=== PATIENT | female | born 1960 | race Caucasian/White ===

== ENCOUNTER 2024-07-01 12:54 | Emergency (ER) | payer OTHER, SELFPAY ==
[2024-07-01 13:12] VITALS: BP 153/78; PULSE 68; RESP 16; TEMP 36.6; O2SAT 100
--- NOTE | 2024-07-01 13:34 | ED.GENADULT ---
HPI - General Adult General Chief complaint: Upper Respiratory Infection Stated complaint: Cough Time Seen by Provider: 07/01/24 13:34 Source: patient Mode of arrival: ambulatory Limitations: no limitations History of Present Illness HPI narrative: 64-year-old female patient presents to the [facility] with complaints of a cough for the past week. Patient states the cough is worse when she tries to go to bed at night. Patient denies any fevers body aches or chills. Patient states she has had a little congestion. And a sore throat. Patient states she has tried some [id number] Tylenol Cough syrup and Mucinex. Related Data Home Medications ?Medication ?Instructions ?Recorded ?Confirmed ?Last Taken ?Type omeprazole 20 mg tablet,delayed 20 mg PO DAILY 09/14/22 06/06/24 Unknown History release Allergies Allergy/AdvReac Type Severity Reaction Status Date / Time amoxicillin (From Amoxil) Allergy Intermediate Swelling Verified 07/01/24 13:14 of Lip/Tongue/Throat Penicillins Allergy Intermediate Swelling Verified 07/01/24 13:14 of Lip/Tongue/Throat azithromycin (From Zithromax Allergy Swelling Verified 07/01/24 13:14 Z-Vitor) of Lip/Tongue/Throat Cephalosporins Allergy Unknown Verified 07/01/24 13:14 esomeprazole AdvReac Severe swollen, Verified 07/01/24 13:14 numb tongue tetanus and diphtheria AdvReac Intermediate swelling Verified 07/01/24 13:14 toxoids and fever to shot site FABIANA Inhibitors AdvReac Cough Verified 07/01/24 13:14 hydrochlorothiazide AdvReac Other Verified 07/01/24 13:14 semaglutide (From Rybelsus) AdvReac Gastrointestinal Verified 07/01/24 13:14 Upset Review of Systems Review of Systems: CONSTITUTIONAL: Denies fever, chills, or sweats. EYES: Denies visual changes, redness, or discharge. ENT: positive rhinorrhea, denies congestion, Positive sore throat, denies otalgia. CARDIOVASCULAR: Denies chest pain, palpitations, or edema. RESPIRATORY: positive cough denies dyspnea. GASTROINTESTINAL: Denies abdominal pain, nausea, vomiting, or diarrhea. GENITOURINARY: Denies dysuria or hematuria. SKIN: Denies rash or itching. MUSCULOSKELETAL: Denies back pain, joint pain, or myalgia. NEUROLOGIC: Denies headache, numbness, or weakness. PSYCHIATRIC: Denies anxiety or depression. [facility] Past Medical History Medical History Dysfunction of right eustachian tube delivery delivered FH: cholecystectomy Vitamin D deficiency B12 deficiency GERD (gastroesophageal reflux disease) Depression Hypercholesteremia HTN (hypertension) Diabetes Surgical History Surgical History History of tonsillectomy Family History Family History Father Hypertension Heart disease Hx of CABG Diabetes mellitus Mother CAD (coronary artery disease) Diabetes mellitus Thyroid disease Sibling Breast cancer Social History Social History Social History: 06/02/24 very confident with medical forms Smoking status: Never smoker Alcohol intake: current Alcohol use details: 4 times a year Substance use: never Do You Feel Safe in your Home?: Yes Lack of Transportation: No Lack of Food: Never True Current Housing: I Have Housing Concerned About Future Housing: No Difficulty Paying Gas/Electric Bills: No Difficulty Paying for Meds: No Currently Unemployed: No Education: Associate Degree Difficulty w/ Childcare or Family Care: No Living arrangements: with family Occupation/Education: occupation Gender identity (if verbalized by the patient): Female Comments At the time of my signature I agree with nursing past medical history, surgical, social, and family history. There is no relevant family history pertinent to the presenting complaint. Exam Narrative: GENERAL: Well-appearing, well-nourished, and in no acute distress. HEAD: Normocephalic, atraumatic. EYES: PERRLA and EOMI. ENT: Nares clear, no rhinorrhea or epistaxis. Mucous membranes moist. posterior pharynx with no erythema, tonsillar enlargement, exudates or lesions present. Bilateral TMs are clear no erythema or foreign bodies the canal. NECK: Supple. No lymphadenopathy CHEST: Clear to auscultation. No respiratory distress. HEART: Regular rate and rhythm. No murmur heard. Normal peripheral pulses. ABDOMEN: Soft, nontender, nondistended, normal active bowel sounds. EXTREMITIES: Normal range of motion. No edema. SKIN: Warm, dry, no rash. NEURO: No focal deficits. Alert and oriented x3. Course Course Level of Care: Express Care Visit Vital Signs Vital signs: Vital Signs Temperature 36.6 C 07/01/24 13:12 Pulse Rate 68 07/01/24 13:12 Respiratory Rate 16 07/01/24 13:12 Blood Pressure 153/78 H 07/01/24 13:12 Pulse Oximetry 100 07/01/24 13:12 Temperature 36.6 C 07/01/24 13:12 Pulse Rate 68 07/01/24 13:12 Respiratory Rate 16 07/01/24 13:12 Blood Pressure 153/78 H 07/01/24 13:12 Pulse Oximetry 100 07/01/24 13:12 Oxygen Delivery Room Air 07/01/24 13:16 Vital signs reviewed. The patient has been informed that they may have pre-hypertension or Hypertension based on a BP reading in the department. I recommend that the patient call the primary care provider listed on their discharge instructions or a physician of their choice this week to arrange follow up for further evaluation of possible pre-hypertension or Hypertension Medical Decision Making MDM Narrative Medical decision making narrative: Plan of care patient is discharged home with some Sudeep Samson. Encouraged patient to take a 24 hour antihistamine and Flonase before bed to help decrease the coughing. Discussed with patient she can also take the Flonase in the morning. Patient verbalized understanding denies any other questions or concerns at this time. Differential Diagnosis Differential Diagnosis: Differential diagnosis: Allergic rhinitis, chronic sinusitis, tonsillitis, acute sinusitis, infectious mononucleosis, seasonal influenza, pertussis, diphtheria, meningococcal disease, viral syndrome, viral bronchitis, RSV, COVID-19 Vital Signs Vital Signs: Vital Signs Temperature 36.6 C 07/01/24 13:12 Pulse Rate 07/01/24 13:12 Respiratory Rate 07/01/24 13:12 Blood Pressure 153/78 H 07/01/24 13:12 Pulse Oximetry 100 07/01/24 13:12 Temperature 36.6 C 07/01/24 13:12 Pulse Rate 68 07/01/24 13:12 Respiratory Rate 16 07/01/24 13:12 Blood Pressure 153/78 H 07/01/24 13:12 Pulse Oximetry 100 07/01/24 13:12 Oxygen Delivery Room Air 07/01/24 13:16 Critical Care Time Critical Care Time Critical Care Time: No Discharge Plan Discharge Clinical Impression: Viral URI with cough Patient Disposition: Home Condition: Stable Instructions: Antibiotic Form, Viral Syndrome (ED) Additional Instructions: Viral illness may last between 7-12days; antibiotic is NOT recommended at this time. Recommend antihistamine such as Benadryl at night time and Claritin/Zyrtec/Emely during the day Cough syrup may cause drowsiness; avoid driving or take it at night time. Also, recommend symptomatic treatment includes: rest, fluids, and increase humidity of the air at home. Recommend Acetaminophen or nonsteroidal anti-inflammatory agents (NSAIDs) as directed in the bottle to reduce fever and/pain/headache. Avoid smoking/second-hand smoke. Limit visits to areas with large crowds. Please schedule a follow-up visit with your personal physician for further evaluation and treatment within 3-5days. Including recheck and discussion of your blood pressure. If your symptoms persist, change or worsen significantly before you can contact your personal physician then please, without delay, go to the emergency department for further evaluation. Patient Language: Khmer Prescriptions: New benzonatate 200 mg capsule 200 mg PO TID PRN (Reason: cough) 10 Days Qty: 30 0RF No Action omeprazole 20 mg tablet,delayed release (DR/EC) 20 mg PO DAILY citalopram 20 mg tablet 20 mg PO DAILY Qty: 90 1RF atorvastatin 20 mg tablet 20 mg PO QHS Qty: 90 1RF olmesartan 40 mg tablet 40 mg PO DAILY Qty: 90 0RF amlodipine 10 mg tablet 10 mg PO DAILY Qty: 90 0RF dapagliflozin propanediol [Farxiga] 10 mg tablet 10 mg PO DAILY Qty: 90 0RF Rx Instructions: Dose increase 05/10/24 - PT WILL LET US KNOW WHEN SHE NEEDS THE REFILL. She is going to double her 5mg until she runs out. metformin 500 mg tablet extended release 24 hr 1,000 mg PO BID Qty: 360 0RF Follow-up/Referrals: PHYSICIAN,QUALITY ASSOCIATE [Primary Care Provider] - Time of Disposition: 13:45
== END 2024-07-01 13:48 | disposition home or self-care (01) ==
PROVIDERS: Emergency Provider Nurse Practitioner Family
DX: J06.9 Acute upper respiratory infection, unspecified (principal); R05.9 Cough, unspecified; I10 Essential (primary) hypertension; E11.9 Type 2 diabetes mellitus without complications; Z79.84 Long term (current) use of oral hypoglycemic drugs; E78.00 Pure hypercholesterolemia, unspecified; K21.9 Gastro-esophageal reflux disease without esophagitis; F32.A Depression, unspecified
CPT/HCPCS: 99213; G0463